=== PATIENT | female | born 2000 | race Caucasian/White ===

== ENCOUNTER 2021-08-05 05:11 | Emergency (ER) | payer OTHER ==
[~2021-08-05] VITALS: Ht 170.2 cm; Wt 108.0 kg
[2021-08-05 05:56] LABS: PLATELET COUNT 259 K/uL (152-353)
[2021-08-05 06:04] LABS: POTASSIUM 3.6 mmol/L (3.6-5.2)
[2021-08-05] MEDS ORDERED: LEVE500T5 PO (06:31)
[2021-08-05 06:40] VITALS: BP 132/64; TEMP 98.7
== END 2021-08-05 06:40 | disposition home or self-care (01) ==
LOC: ED 05:11
PROVIDERS: Emergency Medicine
DX: R56.9 Unspecified convulsions (principal); F19.90 Other psychoactive substance use, unspecified, uncomplicated
CPT/HCPCS: 36415; 80053; 80307; 81000; 85027; 99283

== ENCOUNTER 2022-03-17 15:17 | Emergency (ER) | payer OTHER ==
[~2022-03-17] VITALS: Ht 170.2 cm; Wt 108.9 kg
[~2022-03-17 15:17] MED LIST: LEVE500T5 PO
[2022-03-17 15:38] VITALS: BP 134/86; TEMP 97.7
== END 2022-03-17 17:52 | disposition home or self-care (01) ==
LOC: ED 15:17
DX: Z20.2 Contact with and (suspected) exposure to infections with a predominantly sexual mode of transmission (principal)
CPT/HCPCS: 81002; 87490; 87590; 96372; 99283; J0696